=== PATIENT | male | born 1945 | race Caucasian/White ===

== ENCOUNTER → 2017-06-23 | Outpatient (CLI) | payer MEDICARE, OTHER | END | disposition home or self-care (01) | LOC: VAS 10:42 | DX: I26.99 Other pulmonary embolism without acute cor pulmonale (principal); I80.9 Phlebitis and thrombophlebitis of unspecified site; C82.98 Follicular lymphoma, unspecified, lymph nodes of multiple sites | CPT/HCPCS: 93971 ==